=== PATIENT | female | born 1990 | race Two or more races ===

== ENCOUNTER 2021-08-05 09:58 | Emergency (ER) | payer MEDICAID, OTHER ==
[~2021-08-05] VITALS: Ht 160 cm; Wt 54.7 kg
--- NOTE | 2021-08-05 10:21 | NUR ---
I have reviewed and agree with all interventions, assessments performed and documented by PHOENIX Cohen.
[2021-08-05 10:27] VITALS: BP 105/68
[2021-08-05] MEDS ORDERED: NAPR-56 PO (10:37)
[2021-08-05] MEDS ORDERED: ORPH100T2 PO (10:37)
--- NOTE | 2021-08-05 10:39 | NUR ---
CERVICAL COLLAR PLACED ON PT AND PT REPORTS RELIEF
== END 2021-08-05 10:56 | disposition home or self-care (01) ==
LOC: ER 09:59
DX: S16.1XXA Strain of muscle, fascia and tendon at neck level, initial encounter (principal); M25.511 Pain in right shoulder; M62.838 Other muscle spasm; Z79.899 Other long term (current) drug therapy; V87.7XXA Person injured in collision between other specified motor vehicles (traffic), initial encounter; Y93.89 Activity, other specified; Y92.89 Other specified places as the place of occurrence of the external cause; Y99.8 Other external cause status
CPT/HCPCS: 99283